=== PATIENT | male | born 1950 | race Hispanic/Latino ===

== ENCOUNTER → 2017-08-08 | Outpatient (CLI) | payer MEDICARE | END | disposition home or self-care (01) | LOC: OIH 14:42 | PROVIDERS: ATTEND Internal Medicine Cardiovascular Disease | DX: I10 Essential (primary) hypertension (principal) | CPT/HCPCS: 71020 ==

== ENCOUNTER → 2017-09-05 | Outpatient (CLI) | payer MEDICARE | END | disposition home or self-care (01) | LOC: SHCH 10:46 | PROVIDERS: ATTEND Internal Medicine Cardiovascular Disease | DX: R25.2 Cramp and spasm (principal) | CPT/HCPCS: 93922 ==

== ENCOUNTER → 2022-11-15 | Outpatient (CLI) | payer OTHER ==
[2022-11-15 12:20] LABS: BASOPHILS % (AUTO) 0.4 % (0.0-5.0); EOSINOPHILS % (AUTO) 3.7 % (0.0-8.0); HEMATOCRIT 42.4 % (42-54); LYMPHOCYTES % (AUTO) 34.2 % (21.0-51.0); MEAN CORPUSCULAR HEMOGLOBIN 29.9 pg (27.0-33.0); MEAN CORPUSCULAR VOLUME 90.4 fL (79-99); MONOCYTES % (AUTO) 7.7 % (3.0-13.0); NEUTROPHILS % (AUTO) 53.6 % (40.0-77.0); PLATELET COUNT (AUTO) 315 K/uL (130-400); RED BLOOD CELL COUNT(AUTO) 4.69 MIL/uL (4.50-6.20); RED CELL DISTRIBUTION WIDTH 13.7 % (11.0-15.5); WHITE BLOOD COUNT (AUTO) 8.1 K/uL (4.8-10.8)
[2022-11-15 12:48] LABS: ALBUMIN 3.7 g/dL (3.5-5.0); CREATININE 0.9 mg/dL (0.5-1.5); POTASSIUM 4.3 mmol/L (3.5-5.1); TOTAL PROTEIN, SERUM 8.5 g/dL (6.0-8.3)
== END | disposition home or self-care (01) ==
LOC: LAB 09:05
PROVIDERS: ATTEND Internal Medicine Cardiovascular Disease
DX: R06.00 Dyspnea, unspecified (principal); J84.10 Pulmonary fibrosis, unspecified; Z79.899 Other long term (current) drug therapy
CPT/HCPCS: 36415; 80053; 80061; 83880; 85025

== ENCOUNTER → 2023-02-22 | Outpatient (CLI) | payer OTHER | END | disposition home or self-care (01) | LOC: RAH 08:48 | PROVIDERS: ATTEND Internal Medicine Gastroenterology | DX: K44.9 Diaphragmatic hernia without obstruction or gangrene (principal); R12 Heartburn; R13.10 Dysphagia, unspecified | CPT/HCPCS: 74240 ==